=== PATIENT | male | born 1965 | race Caucasian/White ===

== ENCOUNTER 2016-11-06 16:47 | Inpatient (IN) | payer BC, OTHER ==
[~2016-11-06] VITALS: Ht 182.9 cm; Wt 75.0 kg
[2016-11-06 16:57] VITALS: TEMP 98.3
[2016-11-06 17:07] VITALS: O2SAT 100
[2016-11-06 17:30] VITALS: O2SAT 100
[2016-11-06 17:30] LABS: AUTOMATED NEUTROPHIL # 9.8 TH/MM3 (1.8-7.7); BASOPHIL # 0.1 TH/MM3 (0-0.2); BASOPHIL % 0.5 % (0.0-2.0); EOSINOPHIL # 0.1 TH/MM3 (0-0.4); EOSINOPHIL % 0.9 % (0.0-4.0); HEMATOCRIT 39.8 % (39.0-51.0); HEMO FLAGS DIFF FINAL; LYMPH % 12.5 % (9.0-44.0); LYMPHOCYTE # 1.5 TH/MM3 (1.0-4.8); MEAN CELL VOLUME 91.6 FL (80.0-100.0); MEAN CORPUSCULAR HEMOGLOBIN 31.8 PG (27.0-34.0); MEAN CORPUSCULAR HGB CONC 34.8 % (32.0-36.0); MONO % 5.9 % (0.0-8.0); NEUT % 80.2 % (16.0-70.0); PLATELET COUNT 203 TH/MM3 (150-450); RED BLOOD COUNT 4.35 MIL/MM3 (4.50-5.90); RED CELL DISTRIBUTION WIDTH 13.9 % (11.6-17.2); WHITE BLOOD COUNT 12.2 TH/MM3 (4.0-11.0)
[2016-11-06] MEDS ORDERED: MIDAZOLAM HCL 5 MG/ML VIAL (1 ML) IVP ONE ×2 (17:30→18:00)
[2016-11-06] MEDS ORDERED: HYDROmorphone HCL PF 1 MG/ML VIAL IV PUSH ONE (17:30)
[2016-11-06 17:44] LABS: APTT (PATIENT) 21.1 SEC (24.3-30.1); PROTHROMBIN TIME - PATIENT 11.4 SEC (9.8-11.6)
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
[2016-11-06 17:59] LABS: ALT (GPT) 41 U/L (12-78); ANION GAP 10 MEQ/L (5-15); AST (GOT) 19 U/L (15-37); BICARBONATE 23.6 MEQ/L (21.0-32.0); BLOOD UREA NITROGEN 23 MG/DL (7-18); CHLORIDE 108 MEQ/L (98-107); GLOMERULAR FILTRATION RATE 64 ML/MIN (>89); POTASSIUM 3.6 MEQ/L (3.5-5.1); SODIUM (NA) 142 MEQ/L (136-145)
[2016-11-06 18:01] LABS: ALKALINE PHOSPHATASE 60 U/L (45-117); TOTAL BILIRUBIN ADULT 0.6 MG/DL (0.2-1.0)
[2016-11-06] MEDS: SODIUM CHLOR 0.9% 1000 ML INJ 1,000 ML IV SCH (18:01)
--- NOTE | 2016-11-06 18:16 | RADRPT ---
EXAM DATE/TIME: 11/06/2016 17:48 [facility] COMPARISON: ANKLE LEFT COMPLETE ([id number]), November 06, 2016, 17:29. INDICATIONS : Post reduction Left ankle MEDICAL HISTORY : None. SURGICAL HISTORY : None. ENCOUNTER: Subsequent ACUITY: 1 day PAIN SCORE: Non-responsive. LOCATION: Left ankle FINDINGS: Interim closed reduction and casting of the fracture dislocation of the left ankle. Alignment appears near-anatomic. No acute complication demonstrated. CONCLUSION: Closed reduction and casting of the left ankle fracture/dislocation in near-anatomic alignment. Brent Suarez MD on November 06, 2016 at 18:14 Board Certified Radiologist. This report was verified electronically.
[2016-11-06] MEDS ORDERED: ACETAMINOPHEN 325 MG TAB PO PRN (18:30)
[2016-11-06] MEDS ORDERED: ONDANSETRON HCL 4 MG/2 ML VIAL IV PRN (18:30)
[2016-11-06] MEDS ORDERED: SODIUM CHLORIDE 0.9% FLUSH 5 ML FLUSH IVF PRN (18:30)
[2016-11-06 18:57] VITALS: BP 116/58; PULSE 85; RESP 17; O2SAT 100
[2016-11-06 20:14] VITALS: BP 116/57
[2016-11-06 20:46] VITALS: BP 112/72; PULSE 76; RESP 21; TEMP 97.5; O2SAT 96
[2016-11-06] MEDS ORDERED: SODIUM CHLORIDE 0.9% FLUSH 5 ML FLUSH IVF SCH (21:00)
[2016-11-06] MEDS: MORPHINE SULFATE 4 MG/ML INJ IV PUSH PRN (21:13)
[2016-11-07 00:06] VITALS: BP 131/78; PULSE 74; RESP 21; TEMP 97; O2SAT 99
[2016-11-07] MEDS: MORPHINE SULFATE 4 MG/ML INJ IV PUSH PRN ×3 (00:22→07:49)
[2016-11-07] MEDS: SODIUM CHLOR 0.9% 1000 ML INJ 1,000 ML IV SCH (01:45)
[2016-11-07 04:34] VITALS: BP 135/65; PULSE 71; RESP 20; TEMP 97.4; O2SAT 99
[2016-11-07 07:12] VITALS: BP 127/63; PULSE 84; RESP 16; TEMP 97.6; O2SAT 99
[2016-11-07 08:18] VITALS: O2SAT 98
[2016-11-07] MEDS ORDERED: GENTAMICIN SULFATE 80 MG/2 ML VIAL ONE (08:32)
[2016-11-07] MEDS ORDERED: VANCOMYCIN HCL 1000 MG VIAL ONE (08:32)
[2016-11-07] MEDS ORDERED: ceFAZolin INJ 1,000 MG VIAL ONE (08:32)
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
[2016-11-07] MEDS ORDERED: WALKER/ADULT/FO1 MIS (09:48)
[2016-11-07] MEDS ORDERED: HYDR-3288 PO ×2 (09:48→11:06)
--- NOTE | 2016-11-07 11:12 | PD.OP ---
cc: Clay Vallecillo MD Operative Report Date of Surgery: Nov 07, 2016 Preoperative Diagnosis: Displaced left distal fibular fracture and posterior malleolus fracture Postoperative Diagnosis: Procedure: Open reduction internal fixation left distal fibula, close treatment left posterior malleolus fracture Anesthesia: Gen. Surgeon: Clay Vallecillo Olive Pitter(s): DIANA Garcia PA-C The surgical procedure was assisted by my physician paperhanger assistant. My P.A. presence was necessary throughout this case for the manipulation and positioning of the surgical extremity. My P.A. was assisting me throughout the duration of this procedure. The skill set of a physician paperhanger assistant was medically necessary to complete this procedure. During the surgical case the surgical services assistant was working at the back table and the physician paperhanger assistant was directly assisting me. Operation and Findings: This patient sustained an ankle injury with left displaced fibular fracture and posterior malleolus fracture. Informed consent was obtained preoperatively after detailed discussion of risk and benefits of surgery. Operative site was marked. Patient was brought to operating room and placed on operating room table. IV sedation and GETA were administered by anesthesiologist. IV antibiotics were given prior to incision. Left leg was prepped with alcohol followed by Hibiclens and draped in usual sterile fashion. Timeout procedure was performed. Procedure began with a 4 inch incision over the distal fibula. Subcutaneous tissues dissected with Bovie. Fracture site was visualized. Fracture was now carefully reduced. Fracture keyed into excellent alignment. Fracture tenaculums were used to hold reduction. Multiplanar fluoroscopy revealed excellent alignment of fracture. A Synthes plate was selected. Plate was provisionally held the bone with K wires. Fluoroscopy confirmed plate placement. 3.5 cortical screws were used to compress plate to bone. Multiple screws were placed on each side of the fracture. Fluoroscopy confirmed excellent of fracture with well-placed hardware. Next attention was turned towards the syndesmosis. The syndesmosis was gently stressed. The ankle was externally rotated. There was no widening of the medial clear space or syndesmosis. The posterior malleolus fracture was now visualized. Posterior malleolus fracture was in excellent position. Minimal articular surface present. This be treated closed without internal fixation. Next the wound was thoroughly irrigated with sterile saline. Subcutaneous tissues closed with 3-0 Vicryl. Skin was closed with 3-0 nylon. Sterile dressings were applied. Patient was placed into a well molded well-padded splint. Patient was awakened and transferred to recovery room in stable condition. Needle and sponge counts were correct. Clay Vallecillo MD Nov 07, 2016 11:12
[2016-11-07] MEDS ORDERED: Post-op Orders (for Pharmacy) MISC XX ONE (11:15)
[2016-11-07] MEDS ORDERED: fentaNYL CITRATE 250 MCG/5 ML AMP ONE (11:39)
[2016-11-07] MEDS ORDERED: MIDAZOLAM HCL 2 MG/2 ML VIAL ONE (11:39)
--- NOTE | 2016-11-07 11:39 | RADRPT ---
EXAM DATE/TIME: 11/07/2016 09:55 [facility] COMPARISON: ANKLE LEFT LIMITED (AP&LAT), November 06, 2016, 17:48. INDICATIONS : Open reduction. MEDICAL HISTORY : None. SURGICAL HISTORY : None. ENCOUNTER: Subsequent ACUITY: 2 days PAIN SCORE: Non-responsive. LOCATION: Left lateral FINDINGS: Two view exam was performed of the left ankle. There is a surgical plate along the lateral aspect of the fibula. This is well placed. The fracture is reduced. The ankle is normally aligned. There is a f racture at the posterior distal tibia. CONCLUSION: Successful ORIF. Brent Varghese MD on November 07, 2016 at 11:37 Board Certified Radiologist. This report was verified electronically.
[2016-11-07] MEDS ORDERED: *MEPERIDINE 25 MG INJ VIAL PERIprocedural Use ONLY ONE (11:41)
[2016-11-07] MEDS ORDERED: *morphine SULFATE 8 MG/ML PERIprocedure ONLY ONE (11:54)
[2016-11-07] MEDS ORDERED: ONDANSETRON HCL 4 MG/2 ML VIAL IVP PRN (12:00)
[2016-11-07] MEDS ORDERED: DO NOT ADM ANY ANTICOAGULANT DRUGS XX PRN (12:00)
[2016-11-07] MEDS ORDERED: ACETAMINOPHEN/HYDROcodone 325 MG/7.5 MG TAB PO PRN ×2 (12:00)
[2016-11-07] MEDS ORDERED: MORPHINE SULFATE 4 MG/ML INJ IV PUSH PRN (12:00)
[2016-11-07] MEDS ORDERED: DIMETHICONE/OXYBENZONE/PADMIATE LIP BALM 4.25 GM ONE (12:01)
[2016-11-07] MEDS ORDERED: BACITRACIN TOP OINT 15 GM TUBE ONE (12:05)
[2016-11-07] MEDS ORDERED: LACTATED RINGER'S 1000 ML INJ 1,000 ML ONE (12:22)
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
[2016-11-07] MEDS ORDERED: PROPOFOL 200 MG/20 ML AMP IV ONE (13:22)
[2016-11-07] MEDS ORDERED: SODIUM CHLOR 0.9% 250 ML INJ 250 ML IV ONE (13:22)
[2016-11-07] MEDS ORDERED: ONDANSETRON HCL 4 MG/2 ML VIAL IV PUSH ONE (13:22)
[2016-11-07 13:25] VITALS: BP 109/61; PULSE 78; RESP 16; TEMP 98.1; O2SAT 98
[2016-11-07] MEDS ORDERED: ceFAZolin 2 GM PREMIX 50 ML IV SCH (16:00)
--- NOTE | 2016-11-08 07:12 | EKG ---
Date Performed: 11/06/2016 Time Performed: 16:12:15 PTAGE: 51 years EKG: SINUS TACHYCARDIA NONSPECIFIC T-WAVE ABNORMALITY ABNORMAL RHYTHM ECG NO PREVIOUS TRACING DOCTOR: Baldo Gallardo Interpretating Date/Time 11/08/2016 07:11:53
== END 2016-11-07 15:48 | disposition home or self-care (01) | DRG 494 ==
LOC: HOR 16:47 → NEDA 18:24 → N06A 20:42
PROVIDERS: ADMIT Orthopaedic Surgery Orthopaedic Trauma; ATTEND Orthopaedic Surgery Orthopaedic Trauma
PROC: 0QSHXZZ Reposition Left Tibia, External Approach (ICD-10-PCS; 2016-11-06)
PROC: 0QSH04Z Reposition Left Tibia with Internal Fixation Device, Open Approach (ICD-10-PCS; principal; 2016-11-07 10:07)
DX: S82.62XA Displaced fracture of lateral malleolus of left fibula, initial encounter for closed fracture (principal); F17.210 Nicotine dependence, cigarettes, uncomplicated; Y92.410 Unspecified street and highway as the place of occurrence of the external cause; V23.4XXA Motorcycle driver injured in collision with car, pick-up truck or van in traffic accident, initial encounter; S50.811A Abrasion of right forearm, initial encounter; S50.812A Abrasion of left forearm, initial encounter
CPT/HCPCS: 27840; 71010; 72170; 73600; 73610; 76000; 80053; 85025; 85610; 85730; 93005; 94150; 94770; 96374; 96375; 99152; C1713; J0690; J1170; J1580; J2175; J2250; J2270; J2405; J3010; J3370; J7030; J7050; J7120